=== PATIENT | female | born 1975 | race Caucasian/White ===

== ENCOUNTER 2023-10-10 10:07 | Emergency (ER) | payer OTHER, SELFPAY ==
--- NOTE | 2023-10-10 10:12 | ED.FEMALEGU ---
HPI - Female Genitourinary General Chief complaint: Urogenital-Female Stated complaint: STD Testing Time Seen by Provider: 10/10/23 10:45 Source: patient and RN notes reviewed Mode of arrival: ambulatory Limitations: no limitations History of Present Illness HPI Narrative: 48-year-old female presents with concern of for abnormal vaginal discharge. She reports brown colored malodorous vaginal discharge intermittently for the past month. She reports she had unprotected sex and is concern for STDs. She reports she has an IUD and has not had a period in a couple of years. She denies dysuria, frequency, urgency, abdominal pain, fever. MD elicited complaint: vaginal discharge Related Data Home Medications Medication Instructions Recorded Confirmed bupropion HCl 150 mg 24 hr tablet, mg PO 10/10/23 extended release losartan 50 mg tablet mg 10/10/23 metoprolol tartrate 100 mg tablet mg 10/10/23 omeprazole 20 mg capsule,delayed mg 10/10/23 release sertraline 50 mg tablet mg 10/10/23 Allergies Allergy/AdvReac Type Severity Reaction Status Date / Time piperacillin [From Zosyn] Allergy Rash Verified 10/10/23 10:44 tazobactam [From Zosyn] Allergy Rash Verified 10/10/23 10:44 Review of Systems Review of Systems: CONSTITUTIONAL: Denies malaise, chills, sweats, or fever. CARDIOVASCULAR: Denies chest pain, palpitations, or edema. RESPIRATORY: Denies cough or dyspnea. GASTROINTESTINAL: Denies abdominal pain, nausea, vomiting, diarrhea GENITOURINARY: Denies dysuria, frequency, urgency, suprapubic pressure. Denies flank pain or hematuria. Reports discolored malodorous vaginal discharge SKIN: Denies rash or itching. MUSCULOSKELETAL: Denies back pain or myalgia. All systems reviewed & are unremarkable except as noted in HPI and below PMFSH Comments At time of signature, agree with nursing past medical, surgical, social and family history. There is no relevant family history pertinent to the presenting complaint Exam Narrative: GENERAL: Well-appearing, well-nourished, and in no acute distress. HEAD: Normocephalic. EYES: PERRLA, conjunctivae clear. NECK: Supple. No lymphadenopathy CHEST: Clear to auscultation. No respiratory distress. HEART: Regular rate and rhythm. ABDOMEN: Soft, nontender upon palpation, nondistended, normal active bowel sounds, no palpable or pulsatile masses, no guarding. SKIN: Warm, dry, no rash. NEURO: Alert and oriented x3. PSYCH: Normal mood and affect : Speculum Exam - Vagina: normal appearance of the vagina and abnormal vaginal discharge malodorous and yellow Speculum Exam - Cervix: normal appearance of the cervix and normal palpation Bimanual exam- vagina & uterus: normal palpation Course Course Emergency Course: Patient is aware of diagnosis, understands and agrees to treatment plan. Anticipatory guidance given. Patient agrees to follow-up as directed and is aware of reasons to seek care at the emergency department. Portions of this record may have been created with voice recognition software Level of Care: Express Care Visit Vital Signs Vital signs: Reviewed. MDM - Female Genitourinary MDM Narrative Medical decision making narrative: Exam findings and UA show no acute concerns or changes; patient is non-toxic appearing and is in no distress. Patient is appropriate for outpatient treatment and follow-up. Differential Diagnosis Differential diagnosis: Likely urinary tract infection and cystitis Critical Care Time Critical Care Time Critical Care Time: No Discharge Plan Discharge Clinical Impression: Problematic vaginal discharge Patient Disposition: Home, Self-Care Condition: Stable Instructions: Antibiotic Form, Safe Sex Practices (ED) Additional Instructions: You have been tested for bacterial vaginosis, you receive a phone call with results and treatment if necessary. You have been tested for potential gonorrhea, chlamydia, and trichomoniasis
[2023-10-10 10:28] VITALS: PULSE 53; RESP 16; TEMP 36.4; O2SAT 100
[2023-10-10 10:46] VITALS: BP 108/62
[2023-10-10 10:57] LABS: EDUAAPPEAR Clear; EDUABILI Negative; EDUABLOOD Negative; EDUACOLOR1 Yellow; EDUAGLUCOSE Negative; EDUAKETONE Negative; EDUALEUKO Negative; EDUANITRATE Negative; EDUAPROTEIN Negative; EDUAUROBILI 0.2
--- NOTE | 2023-10-10 11:01 | PC.NURSE ---
Pelvic exam complete
[2023-10-10] MEDS: cefTRIAXone 500 MG, LIDOCAINE HCL 1% LOCAL INJ 1 ML IM (11:20)
[2023-10-10 20:16] LABS: Trichomonas Vag PCR NOT DETECTED (NOT DETECTE)
[2023-10-10 20:44] LABS: Chlamydia trachomatis NOT DETECTED (NOT DETECTE); Neisseria gonorrhoeae PCR NOT DETECTED (NOT DETECTE)
[2023-10-13 14:43] LABS: Bacterial Vaginosis POSITIVE (NEGATIVE)
== END 2023-10-10 11:45 | disposition home or self-care (01) ==
PROVIDERS: Emergency Provider Nurse Practitioner
DX: N89.8 Other specified noninflammatory disorders of vagina (principal); I10 Essential (primary) hypertension
CPT/HCPCS: 81003; 81513; 87491; 87591; 87661; 96372; 99214; G0463; J0696